=== PATIENT | female | born 1970 | race Hispanic/Latino ===

== ENCOUNTER 2021-11-06 11:11 | Emergency (ER) | payer OTHER, MEDICAID ==
[2021-11-06 11:18] VITALS: BP 167/115
[2021-11-06] MEDS ORDERED: IBUPROFEN 600 MG TAB PO ONE (11:42)
[2021-11-06] MEDS ORDERED: ACETAMINOPHEN 500 MG TAB PO ONE (11:42)
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
== END 2021-11-06 15:17 | disposition home or self-care (01) ==
LOC: ED 11:11
DX: S43.491A Other sprain of right shoulder joint, initial encounter (principal); S53.491A Other sprain of right elbow, initial encounter; S00.03XA Contusion of scalp, initial encounter; M62.838 Other muscle spasm; M54.2 Cervicalgia; I10 Essential (primary) hypertension; Z88.0 Allergy status to penicillin; Z88.1 Allergy status to other antibiotic agents; Z79.899 Other long term (current) drug therapy; Z88.2 Allergy status to sulfonamides; V89.2XXA Person injured in unspecified motor-vehicle accident, traffic, initial encounter; Y93.89 Activity, other specified; Y92.488 Other paved roadways as the place of occurrence of the external cause; Y99.8 Other external cause status
CPT/HCPCS: 70450; 72125; 99284